=== PATIENT | male | born 1950 | race Caucasian/White ===

== ENCOUNTER 2022-02-23 12:14 | Inpatient (IN) | payer MEDICARE, MEDICAID ==
[2022-02-23 13:07] LABS: HEMOGLOBIN 15.2 gm/dl (14.0-17.5); RED BLOOD COUNT 5.29 M/UL (4.20-5.50); WHITE BLOOD COUNT 6.6 K/UL (4.5-11.0)
[2022-02-23 13:26] LABS: BUN/CREATININE RATIO 18 (0-10)
[2022-02-24 01:50] LABS: HEMOGLOBIN 14.1 gm/dl (14.0-17.5); RED BLOOD COUNT 4.94 M/UL (4.20-5.50); WHITE BLOOD COUNT 7.6 K/UL (4.5-11.0)
[2022-02-24 02:42] LABS: BUN/CREATININE RATIO 20 (0-10)
[2022-02-24] MEDS ORDERED: FLOMAX0.4 MG PO ×2 (05:52→05:53)
[2022-02-25 03:44] LABS: HEMOGLOBIN 15.5 gm/dl (14.0-17.5); WHITE BLOOD COUNT 6.6 K/UL (4.5-11.0)
[2022-02-25 03:46] LABS: RED BLOOD COUNT 5.5 M/UL (4.20-5.50)
[2022-02-25 05:59] LABS: BUN/CREATININE RATIO 21 (0-10)
[2022-02-26 02:37] LABS: BUN/CREATININE RATIO 32 (0-10)
--- NOTE | 2022-02-26 15:10 | NUR ---
PATIENT BECOMING AGITATED WANTING TO GO OUTSIDE TO SMOKE. HE THREW A SODA ACROSS THE ROOM AND PUSHED THE TABLE. CALLED MD AND NICOTINE PATCH ORDERED. CIWA SCORING ALLOWS FOR 1MG ATIVAN PO. PATCH PLACED AND ATIVAN GIVEN WILL CONTINUE TO MONITOR.
[2022-02-27 08:29] LABS: HEMOGLOBIN 16.1 gm/dl (14.0-17.5); RED BLOOD COUNT 5.57 M/UL (4.20-5.50); WHITE BLOOD COUNT 10.1 K/UL (4.5-11.0)
[2022-02-27 09:05] LABS: BUN/CREATININE RATIO 36 (0-10)
[2022-02-28 02:38] LABS: RED BLOOD COUNT 6.05 M/UL (4.20-5.50); WHITE BLOOD COUNT 10.8 K/UL (4.5-11.0)
[2022-02-28 02:59] LABS: BUN/CREATININE RATIO 34 (0-10)
[2022-03-01 09:11] LABS: RED BLOOD COUNT 6.12 M/UL (4.20-5.50)
[2022-03-01 09:37] LABS: WHITE BLOOD COUNT 7.4 K/UL (4.5-11.0)
[2022-03-01] MEDS ORDERED: LOPRESSOR 50 MG50 MG PO (10:55)
[2022-03-01] MEDS ORDERED: PREDNISONE 20 M20 MG PO (10:55)
[2022-03-01] MEDS ORDERED: AMIODARONE HCL200 MG PO (10:55)
[2022-03-01] MEDS ORDERED: ASPIRIN EC81 MG PO (10:55)
[2022-03-01] MEDS ORDERED: COMBIVENT RESPIM4 GM INH (10:55)
[2022-03-01] MEDS ORDERED: FUROSEMIDE40 MG PO (10:55)
[2022-03-01] MEDS ORDERED: DIGOXIN250 MCG PO (10:55)
[2022-03-01] MEDS ORDERED: ELIQUIS 5 MG TAB5 MG PO (10:55)
[2022-03-01] MEDS ORDERED: SPIRIVA RESPIMAT4 GM INH (10:55)
== END 2022-03-01 12:41 | disposition home or self-care (01) | DRG 308 ==
LOC: ER1 12:14 → PROG CARE 15:46 → CDU 15:46 → PROG CARE 15:46
PROVIDERS: Emergency Medicine; Internal Medicine Cardiovascular Disease; Physician Assistant Medical; ADMIT Internal Medicine
PROC: B24BZZZ Ultrasonography of Heart with Aorta (ICD-10-PCS; principal; 2022-02-24)
DX: I48.0 Paroxysmal atrial fibrillation (principal); I50.23 Acute on chronic systolic (congestive) heart failure; Z20.822 Contact with and (suspected) exposure to COVID-19; I13.0 Hypertensive heart and chronic kidney disease with heart failure and stage 1 through stage 4 chronic kidney disease, or unspecified chronic kidney disease; J44.1 Chronic obstructive pulmonary disease with (acute) exacerbation; N17.9 Acute kidney failure, unspecified; Z68.1 Body mass index [BMI] 19.9 or less, adult; I48.19 Other persistent atrial fibrillation; E66.9 Obesity, unspecified; N40.0 Benign prostatic hyperplasia without lower urinary tract symptoms; I42.8 Other cardiomyopathies; I25.10 Atherosclerotic heart disease of native coronary artery without angina pectoris; F15.10 Other stimulant abuse, uncomplicated; F19.10 Other psychoactive substance abuse, uncomplicated; F17.210 Nicotine dependence, cigarettes, uncomplicated; Z91.14 Patient's other noncompliance with medication regimen; Z90.49 Acquired absence of other specified parts of digestive tract; Z82.49 Family history of ischemic heart disease and other diseases of the circulatory system; Z79.01 Long term (current) use of anticoagulants; Z79.82 Long term (current) use of aspirin
CPT/HCPCS: ECHO; 36415; 36600; 71045; 80048; 80053; 80162; 80307; 82550; 82553; 82803; 83036; 83735; 83880; 84439; 84443; 84484; 85025; 85027; 86140; 93005; 93306; 94640; 94664; 94760; 96365; 96366; 96367; 96372; 96374; 96375; 96376; 99285; G0378; G0480; J1120; J1160; J1650; J1940; J2060; J2920; J3411; J3475; J3486; U0002

== ENCOUNTER 2022-03-03 10:35 | Emergency (ER) | payer MEDICARE ==
[~2022-03-03 10:35] MED LIST: AMIODARONE HCL200 MG PO; ASPIRIN EC81 MG PO; COMBIVENT RESPIM4 GM INH; DIGOXIN250 MCG PO; ELIQUIS 5 MG TAB5 MG PO; FLOMAX0.4 MG PO; FUROSEMIDE40 MG PO; LOPRESSOR 50 MG50 MG PO; PREDNISONE 20 M20 MG PO; SPIRIVA RESPIMAT4 GM INH
[2022-03-03] MEDS ORDERED: BACTROBAN OINT22 GM EXT (11:37)
[2022-03-03] MEDS ORDERED: CEPHALEXIN500 MG PO (11:37)
== END 2022-03-03 11:53 | disposition home or self-care (01) ==
LOC: ER1 10:35
DX: T20.00XA Burn of unspecified degree of head, face, and neck, unspecified site, initial encounter (principal); L03.211 Cellulitis of face; I11.0 Hypertensive heart disease with heart failure; I50.9 Heart failure, unspecified; F17.200 Nicotine dependence, unspecified, uncomplicated; X08.8XXA Exposure to other specified smoke, fire and flames, initial encounter
CPT/HCPCS: 99283

== ENCOUNTER 2022-05-27 15:20 | Inpatient (IN) | payer MEDICARE, MEDICAID ==
[~2022-05-27] VITALS: Ht 193 cm; Wt 131.6 kg
[~2022-05-27 15:20] MED LIST changes: +BACTROBAN OINT22 GM EXT; +CEPHALEXIN500 MG PO
[2022-05-27 16:33] LABS: HEMOGLOBIN 11.8 gm/dl (14.0-17.5); RED BLOOD COUNT 4.25 M/UL (4.20-5.50); WHITE BLOOD COUNT 4.9 K/UL (4.5-11.0)
[2022-05-27 17:00] LABS: BUN/CREATININE RATIO 16 (0-10)
[2022-05-28 04:48] LABS: HEMOGLOBIN 11.1 gm/dl (14.0-17.5); RED BLOOD COUNT 3.96 M/UL (4.20-5.50); WHITE BLOOD COUNT 5.6 K/UL (4.5-11.0)
[2022-05-28 05:19] LABS: BUN/CREATININE RATIO 14 (0-10)
[2022-05-28] MEDS ORDERED: AMIODARONE HCL200 MG PO (10:48)
[2022-05-28] MEDS ORDERED: DIGOX250 MCG PO (10:48)
[2022-05-28] MEDS ORDERED: FUROSEMIDE40 MG PO (10:49)
[2022-05-28] MEDS ORDERED: DOXAZOSIN MESYLA4 MG PO (10:49)
[2022-05-28] MEDS ORDERED: ASPIRIN EC81 MG PO (10:49)
[2022-05-28] MEDS ORDERED: METOPROLOL TART50 MG PO (10:50)
--- NOTE | 2022-05-28 15:00 | NUR ---
WOUNDS TO RIGHT UPPER ARM AND LEFT FOREARM CLEANED WELL WITH WOUND CLEANSER. WET TO DRY DRESSINGS APPLIED AND WRAPPED WITH KERLIX. PT TOLERATED WELL.
[2022-05-29 04:38] LABS: HEMOGLOBIN 11.5 gm/dl (14.0-17.5); RED BLOOD COUNT 4.13 M/UL (4.20-5.50)
[2022-05-29 05:23] LABS: BUN/CREATININE RATIO 17 (0-10)
[2022-05-30 03:55] LABS: HEMOGLOBIN 12.5 gm/dl (14.0-17.5); WHITE BLOOD COUNT 5.4 K/UL (4.5-11.0)
[2022-05-30 04:13] LABS: RED BLOOD COUNT 4.56 M/UL (4.20-5.50)
[2022-05-30 04:29] LABS: BUN/CREATININE RATIO 20 (0-10)
[2022-05-31 02:35] LABS: HEMOGLOBIN 11.4 gm/dl (14.0-17.5); RED BLOOD COUNT 4.16 M/UL (4.20-5.50); WHITE BLOOD COUNT 5.1 K/UL (4.5-11.0)
[2022-05-31 03:04] LABS: BUN/CREATININE RATIO 20 (0-10)
[2022-06-01 04:23] LABS: HEMOGLOBIN 11.6 gm/dl (14.0-17.5); RED BLOOD COUNT 4.2 M/UL (4.20-5.50); WHITE BLOOD COUNT 5.3 K/UL (4.5-11.0)
[2022-06-01 05:40] LABS: BUN/CREATININE RATIO 22 (0-10)
[2022-06-01] MEDS ORDERED: CARVEDILOL25 MG PO (13:03)
[2022-06-01] MEDS ORDERED: ELIQUIS 5 MG TAB5 MG PO (13:03)
[2022-06-01] MEDS ORDERED: K-TAB ER20 MEQ PO (13:28)
[2022-06-01] MEDS ORDERED: COZAAR25 MG PO (13:28)
[2022-06-01] MEDS ORDERED: BACTRIM DS TAB1 EACH PO (13:28)
[2022-06-01] MEDS ORDERED: FUROSEMIDE40 MG PO (13:28)
[2022-06-01] MEDS ORDERED: ROXICODONE TAB 55 MG PO (13:31)
== END 2022-06-01 14:28 | disposition home or self-care (01) | DRG 602 ==
LOC: ER1 15:20 → PROG CARE 18:33 → CDU 18:33 → PROG CARE 21:00
PROVIDERS: Physician Assistant; Preventive Medicine Occupational Medicine; ADMIT Internal Medicine
PROC: B24BZZZ Ultrasonography of Heart with Aorta (ICD-10-PCS; principal; 2022-06-01)
DX: L02.414 Cutaneous abscess of left upper limb (principal); I50.23 Acute on chronic systolic (congestive) heart failure; L03.115 Cellulitis of right lower limb; I42.9 Cardiomyopathy, unspecified; J44.1 Chronic obstructive pulmonary disease with (acute) exacerbation; I48.19 Other persistent atrial fibrillation; I48.0 Paroxysmal atrial fibrillation; I49.3 Ventricular premature depolarization; F19.10 Other psychoactive substance abuse, uncomplicated; N40.0 Benign prostatic hyperplasia without lower urinary tract symptoms; N30.90 Cystitis, unspecified without hematuria; I16.0 Hypertensive urgency; F17.210 Nicotine dependence, cigarettes, uncomplicated; I11.0 Hypertensive heart disease with heart failure; I25.10 Atherosclerotic heart disease of native coronary artery without angina pectoris; S70.11XA Contusion of right thigh, initial encounter; Z95.5 Presence of coronary angioplasty implant and graft; Z98.890 Other specified postprocedural states; Z82.49 Family history of ischemic heart disease and other diseases of the circulatory system; Z79.82 Long term (current) use of aspirin; Z79.899 Other long term (current) drug therapy
CPT/HCPCS: ECHO; 36415; 51702; 71045; 73060; 73090; 73201; 73700; 80048; 80053; 80162; 80202; 80307; 81001; 82550; 82553; 83690; 83735; 83880; 84484; 85025; 85027; 85652; 86140; 87040; 87070; 87077; 87086; 87186; 87205; 93005; 93306; 93970; 94640; 94664; 94760; 96374; 96375; 99285; J0696; J1940; J2001; J2185; J2250; J2270; J2704; J3010; J3370; J7070; Q9967